=== PATIENT | male | born 1960 | race African-American/Black ===

== ENCOUNTER → 2020-07-15 | Outpatient (CLI) | payer OTHER ==
[~2020-07-15] MED LIST: REGADENOSON 0.4 MG/5 ML SYR IV ONE
== END ==
LOC: NM 09:24
PROVIDERS: ATTEND Internal Medicine Cardiovascular Disease
DX: Z13.6 Encounter for screening for cardiovascular disorders (principal); I10 Essential (primary) hypertension; Z82.49 Family history of ischemic heart disease and other diseases of the circulatory system
CPT/HCPCS: 78452; 93017; A9502; J2785